=== PATIENT | female | born 2000 | race Caucasian/White ===

== ENCOUNTER 2018-07-02 15:39 | Observation (INO) ==
[2018-07-02 16:38] LABS: Basophils % 0.2 %; Eosinophils # 0.1 K/mcL (0.0-0.6); Eosinophils % 0.7 %; Hematocrit 32.2 % (35.3-44.9); Hemoglobin 10.4 g/dL (11.5-15.4); Immature Granulocytes % 0.4 % (0-4); Lymphocytes # 1.6 K/mcL (0.6-4.6); Lymphocytes % 16.1 %; Mean Corpuscular HGB Conc 32.3 g/dL (31.6-35.5); Mean Corpuscular Hemoglobin 25.1 pg (28.0-33.3); Mean Corpuscular Volume 77.6 fL (83.0-100.0); Mean Platelet Volume 10.4 fL (9.4-12.4); Monocytes # 0.5 K/mcL (0.0-1.3); Monocytes % 5.6 %; Neutrophils # 7.5 K/mcL (1.6-8.9); Platelet Count 207 K/mcL (140-400); Red Blood Count 4.15 M/mcL (3.82-4.97); Red Cell Distribution Width 13.9 % (11.5-14.5); White Blood Count 9.7 K/mcL (4.3-11.1)
[2018-07-02 16:58] LABS: Alanine Aminotransferase 7 Units/L (7-52); Aspartate Amino Transferase 9 Units/L (13-39); BUN/Creatinine Ratio 19 (6-26); Blood Urea Nitrogen 8 mg/dL (6-20); Lactate Dehydrogenase 113 Units/L (140-271); Uric Acid 4.9 mg/dL (2.3-7.6); eGFR For African Americans > 60 (> 60); eGFR For Non-African Americans > 60 (> 60)
[2018-07-02 17:58] LABS: Amphetamine Screen,Urine Negative ng/mL (Cutoff=1000); Barbiturate Screen,Urine Negative ng/mL (Cutoff=200); Benzodiazepines Screen,Urine Negative ng/mL (Cutoff=200); Cannabinoid Screen,Urine Negative ng/mL (Cutoff = 50); Cocaine Screen,Urine Negative ng/mL (Cutoff= 300); Opiate Screen,Urine Negative ng/mL (Cutoff=300); Phencyclidine Screen,Urine Negative ng/mL (Cutoff=25)
[2018-07-02 18:08] LABS: Protein/Creatinine Ratio,Urine 0.23 mg/mg (0.00-0.20)
== END 2018-07-02 18:41 | disposition home or self-care (01) ==
LOC: 1NENULAB
PROVIDERS: ADMIT Registered Nurse; ATTEND Registered Nurse

== ENCOUNTER 2018-07-04 14:26 | Inpatient (IN) ==
[2018-07-04 13:21] LABS: Basophils % 0.2 %; Eosinophils # 0.1 K/mcL (0.0-0.6); Eosinophils % 0.8 %; Hematocrit 34.3 % (35.3-44.9); Immature Granulocytes % 0.7 % (0-4); Lymphocytes # 1.3 K/mcL (0.6-4.6); Lymphocytes % 14.6 %; Mean Corpuscular HGB Conc 32.1 g/dL (31.6-35.5); Mean Corpuscular Hemoglobin 25.1 pg (28.0-33.3); Mean Corpuscular Volume 78.1 fL (83.0-100.0); Mean Platelet Volume 10.4 fL (9.4-12.4); Monocytes # 0.5 K/mcL (0.0-1.3); Monocytes % 5.4 %; Neutrophils # 7.2 K/mcL (1.6-8.9); Platelet Count 201 K/mcL (140-400); Red Blood Count 4.39 M/mcL (3.82-4.97); Red Cell Distribution Width 13.7 % (11.5-14.5); Segmented Neutrophils % 78.3 %
[2018-07-04 13:31] LABS: Alanine Aminotransferase 7 Units/L (7-52); Aspartate Amino Transferase 9 Units/L (13-39); BUN/Creatinine Ratio 13 (6-26); Blood Urea Nitrogen 5 mg/dL (6-20); Lactate Dehydrogenase 126 Units/L (140-271); Uric Acid 4.9 mg/dL (2.3-7.6); eGFR For Non-African Americans > 60 (> 60)
[2018-07-04 13:43] LABS: Amphetamine Screen,Urine Negative ng/mL (Cutoff=1000); Barbiturate Screen,Urine Negative ng/mL (Cutoff=200); Benzodiazepines Screen,Urine Negative ng/mL (Cutoff=200); Cannabinoid Screen,Urine Negative ng/mL (Cutoff = 50); Cocaine Screen,Urine Negative ng/mL (Cutoff= 300); Opiate Screen,Urine Negative ng/mL (Cutoff=300); Phencyclidine Screen,Urine Negative ng/mL (Cutoff=25)
[2018-07-04 13:44] LABS: Protein/Creatinine Ratio,Urine 0.52 mg/mg (0.00-0.20)
--- NOTE | 2018-07-04 14:14 | OB/GYN History & Physical ---
Date of Encounter: 07/04/18 Time of Encounter: 14:12 Assessment and Plan (1) 37 or more weeks gestation of Current visit: Yes Status: Acute (2) Gestational proteinuria in third trimester Current visit: Yes Status: Acute Was admitted for induction of labor versus augmentation. (3) Elevated blood pressure complicating in third trimester, antepartum Current visit: No Status: Acute History of Present Illness HPI: Ms. Trujillo is a 18 year old female Patient is a 18-year-old 1 para 0 black female enters today complaining of elevated blood pressures at home. 160/101. She was seen in the office last with low pressures 160/110. She was evaluated at that time laboratories were normal. However her protein creatinine ratio and total protein are now elevated twice with the were that she was here 2 days ago. Will admit for induction / augmentation due to gestational hypertension and proteinuria. Patient reports headaches and blurred vision. She denies contractions. Patient reports active fetus. Past Med Surg Social Fam HX - Past Medical History Medical history: no medical history Additional medical history: pre-diabetes Psychiatric history: anxiety, depression - Past Surgical History Surgical History: appendectomy Additional surgical history: right wrist ligament repair, wisdom teeth extraction - Social History Smoking Status: Never smoker Smokeless Tobacco Status: No Alcohol use: none Drug use: none - Family History Mother Living Status: Hx Family Cardiac Disorders: Yes (HTN) Hx Family Respiratory Disorders: No Hx Family Cancer: Yes (lung) Hx Family GI Disorders: No Hx Family Endocrine Disorder: Yes (DM type 2) Hx Family Neuromuscular Disorders: No Hx Family Neurologic Disorders: No Hx Family HEENT Disorders: No Hx Family Autoimmune Disorders: No Obstetrical History - Pregnancies : 1 Para: 0 Medications and Allergies Vxp204/FA/Omega3/Dha/Fish Oil [ Gummies] 1 each PO DAILY 05/11/18 [ History] 3 Allergy/AdvReac Type Severity Reaction Status Date / Time No Known Allergies Allergy Verified 05/11/18 06:03 Review of System OB All systems PM: reviewed and no additional remarkable complaints except as stated - Genitourinary Genitourinary: amenorrhea - Menstruation Menstruation: amenorrhea - Neurological Nerological: as per HPI, headache(s), other visual disturbances Exam - Constitutional Constitutional: morbidly obese - HEENT HEENT: Normocephaly - Neck Neck exam: full ROM - Lungs Respiratory exam: CTAB - Cardiovascular Cardiovascular exam: RRR - Abdomen Abdomen: Present: gravid, non tender - Extremities Extremities exam: full ROM Deep Tendon Reflex Grade: 2+ Normal - Cervix Dilation: 2 Effacement: 60 Station: -2 - Uterus Uterus exam: Present: enlarged Results Result Diagrams: 07/04/18 12:38 07/04/18 12:38 Abnormal lab results Hgb 11.0 g/dL (11.5-15.4) L 07/04/18 12:38 Hct 34.3 % (35.3-44.9) L 07/04/18 12:38 MCV 78.1 fL (83.0-100.0) L 07/04/18 12:38 MCH 25.1 pg (28.0-33.3) L 07/04/18 12:38 BUN 5 mg/dL (6-20) L 07/04/18 12:38 Creatinine 0.39 mg/dL (0.60-1.20) L 07/04/18 12:38 AST 9 Units/L (13-39) L 07/04/18 12:38 Lactate Dehydrogenase 126 Units/L (140-271) L 07/04/18 12:38 Protein/Creatinin Ratio 0.52 mg/mg (0.00-0.20) H 07/04/18 12:55 Urine Total Protein 90 mg/dL (1-14) H 07/04/18 12:55 All other labs normal. - VTE Reasons for not Prescribing Prophylaxis: Treatment not Indicated - Low risk for VTE - Attending Attestation clifford fairchild md facog
[~2018-07-04 14:26] MED LIST: *HR* Nalbuphine 10 MG/ML AMPUL IVP PRN; Famotidine 20 MG/2 ML VIAL IVP PRN; Naloxone 0.4 MG/ML INJ IVP PRN; Ondansetron 4 MG/2 ML VIAL IVP PRN
[2018-07-04] MEDS ORDERED: Oxytocin 20 units/ LR 1000 mL 20 UNIT/1,000 ML BAG IVC SCH (16:30)
[2018-07-04] MEDS: 0.9 % Sodium Chloride 1,000 ML IVC SCH (17:13)
[2018-07-04] MEDS ORDERED: Epidural Premix (fent/bupiv) 110 ML EP SCH (18:15)
[2018-07-04] MEDS ORDERED: EPHEDrine 50 MG/ML VIAL IVP PRN (18:15)
[2018-07-04] MEDS ORDERED: Bupivacaine-MPF 0.25% 10 ML VIAL EP ONE (18:15)
[2018-07-04] MEDS ORDERED: Ondansetron 4 MG/2 ML VIAL IVP PRN (18:15)
[2018-07-04] MEDS ORDERED: *HR* FentaNYL (PF) 100 MCG/2 ML VIAL EP ONE (18:15)
[2018-07-04] MEDS ORDERED: Naloxone 0.4 MG/ML INJ IVP PRN (18:15)
[2018-07-04] MEDS ORDERED: *HR* Ropivacaine/PF 0.2% 20 ML VIAL EP ONE (18:15)
--- NOTE | 2018-07-04 18:19 | Anesthesia Evaluation PreOp ---
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: Denies Any Significant HX Other Medical History: Denies Any Significant HX Anesthesia History: No Prior Anesthetic Complications, Past Anesthesia ( Appendectomy, [place] teeth extraction, right wrist surgery) : Yes Alcohol Use: none Drug use: none Medications and Allergies [id number]/FA/Omega3/Dha/Fish Oil [ Gummies] 1 each PO DAILY 05/11/18 [ History] 3 Allergy/AdvReac Type Severity Reaction Status Date / Time No Known Allergies Allergy Verified 05/11/18 06:03 - Meds/Allergy Pre-op Review Medications Reviewed: Yes Allergies Reviewed: Yes Beta Blockers on Current Med List: No Anesthesia Results - Labs 07/04/18 12:38 07/04/18 12:38 Anesthesia Exam BP 163/94 P 88 R 16 T 97.6 Height: 5'0" Weight: 114.7kg NPO (# of Hours): 4 Pain Scale: 4 Pain Scale Used: Numeric (1 - 10) - HEENT Pupil (Motor): Pupils equal Mallampati: II Teeth: Normal Oral Opening: Greater than 3 - 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
[2018-07-04] MEDS ORDERED: *HR* FentaNYL (PF) 100 MCG/2 ML VIAL ONE (19:54)
[2018-07-04] MEDS ORDERED: Lidocaine -MPF 2% 5 ML VIAL ONE (19:55)
--- NOTE | 2018-07-04 21:45 | OB Labor Progress Note ---
Date of Encounter: 07/04/18 Time of Encounter: 21:43 Labor Progress Note - Subjective Subjective: Patient resting comfortably with Nubain - Cervix Cervix: 1/80/-2 - Heart Tones Heart Tones: 130/moderate/+accels/-decels - [place]: 2-3 - Interventions Interventions: Cervical Disla placed - Plan Plan: Continue Pitocin per policy Frequent repositioning Nubain and epidural as desired Anticipate
--- NOTE | 2018-07-04 22:37 | Anesthesia Procedures ---
Date of Encounter: 07/04/18 Time of Encounter: 22:12 Procedures: Anesthesia - Epidural/Spinal Patient ID/Chart reviewed: Yes Patient examined: Yes OB Eval: Gestational age: 37 OB Eval: : 1 OB Eval: Hx Para: 0 OB Eval: Dilated at (cm): 1 OB Eval: Contractions: Non-stressed pattern Consent Obtained: Yes Supplemental Oxygen: None/Room Air Site Prep: Aseptic Technique, Sterile prep and drape, Povidone-Iodine 1% Patient position: upright Local Anesthetic: Lidocaine 1% Amount of Local Anesthetic used: 3 Touhy Needle Gauge: 18 Touhy Needle Depth (cm): 7 Catheter Depth at Skin (cm): 16 Test Dose (1.5% Lido + Epi): Volume given (mls): 3 Test Dose Result: Negative Loading Dose: Fentanyl (mcg): 100 Loading Dose Administered: Thru Catheter Infusion Med: 0.125% Bupivacaine w/ 2 mcg/ml Fentanyl Infusion Rate (mls/hr): [address]: Tegaderm, Tape Interspace Used: L3-L4 Loss of Resistance (FRANK): Yes Blood: No CSF: No Paresthesia: No Procedure: LILY placed 1st pass in upright position without any immediate noted complications. VSS and FHT stable throughout. Vitals + FHT's: 2212 BP 144/102 P 89 R 18 2234 BP 138/78 P 106 R 16 FHT 135
--- NOTE | 2018-07-05 02:28 | OB Labor Progress Note ---
Date of Encounter: 07/05/18 Time of Encounter: 02:26 Labor Progress Note - Subjective Subjective: Comfortable with epidural - Cervix Cervix: 5/75/-2 - Heart Tones Heart Tones: 140/minimal/-accels/late, variables - Jemison Jemison: q2 - Interventions Interventions: AROM for small amount of clear fluid - Plan Plan: Continue pitocin per policy Frequent repositioning anticipate
--- NOTE | 2018-07-05 03:21 | OB Labor Progress Note ---
Date of Encounter: 07/05/18 Time of Encounter: 03:19 Labor Progress Note - Cervix Cervix: /-1 - [place]: IUPC placed - Interventions Interventions: Fluid bolus
[2018-07-05] MEDS: 0.9 % Sodium Chloride 1,000 ML IVC SCH (04:29)
--- NOTE | 2018-07-05 06:34 | Anesthesia Progress Note ---
Date of Encounter: 07/05/18 Time of Encounter: 06:25 Anesthesia Note - Note Note: 07/05/18 06:32 Called to bedside for pain control. Pt complaining of "back pain" during contractions. Bolus naropin 0.2% 8ml administered via epidural catheter. VSS and FHT stable throughout. 07/05/18 06:34
[2018-07-05] MEDS ORDERED: Ringers Solution, Lactated 1,000 ML ONE (06:57)
--- NOTE | 2018-07-05 10:39 | OB/GYN Procedure Note ---
Delivery - Delivery Date: 07/05/18 Provider: Edy Charles Intrapartum events: none Delivery induction: oxytocin, randle Delivery augmentation: rupture of membranes Delivery monitor: external FHT, external uterine, internal uterine Anesthesia: local, epidural Quantitated Blood Loss: 100 - (s) Infant A Delivery Date: 07/05/18 Infant Delivery Time: 10:12 Presentation: vertex Position: SAMIR Route of delivery: Gender: Female Viability: Viable Pounds: 6 Ounces: 4 Weight Gram: 2.845 kg at 1 minute: 1 at 5 mins: 6 at 10 mins: 7 Shoulder Dystocia: not encountered Specimens collected: cord blood Placenta: spontaneous Cord: nuchal cord, 3 umbilical vessels, nuchal cut - Repair Episiotomy: none Laceration Description: Perineal - 2nd Degree - Complications Delivery complications: none Delivery comments: Patient is a 18-year-old 1 para 0 at 37 and one sevenths weeks who presented to labor and delivery with elevated blood pressures. She been seen on labor and delivery last week with similar complaints the lab work was all normal she was discharged home patient continued to have elevated blood pressures at home upon arrival to labor and delivery there were elevated and her protein creatinine ratio was 0.5. Because of the abnormality recommended we just go ahead and keep her and induce her. Patient to get a Randle catheter along with Pitocin patient progressed appropriately did receive an epidural. She became complete and allowed the patient to labor down she pushed for approximately 1 hour. Right before delivery was noted patient was having some decelerations down into the 90s but did return to baseline patient was able to deliver the 's head in left occiput anterior presentation at 1012. There was a tight nuchal cord 1 that was clamped and cut the was fully delivered and immediately handed off to waiting pediatric team. Cord gases were obtained at this time cord blood was not necessary. Apgars were 1 at 1 minute, 6 at 5 min, 7 at 10 minutes. Placenta then delivered spontaneously with a three-vessel cord, substance abuse nurse at [place], anesthesia epidural local, estimated blood loss was 100 mL. Patient had a second-degree perineal laceration repaired with 3-0 Vicryl in usual fashion cervix and vagina was visualized intact. Patient tolerated the delivery well she will be observed for 2 hours before being taken floor. - Disposition Mom disposition: stable in LDR disposition: taken to nursery
[2018-07-05] MEDS ORDERED: Oxytocin 20 units/ LR 1000 mL 20 UNIT/1,000 ML BAG IVC SCH (13:02)
[2018-07-05] MEDS ORDERED: Lanolin 7 G OINT...G. TP PRN (13:02)
[2018-07-05] MEDS ORDERED: Acetaminophen 325 MG TABLET PO PRN (13:02)
[2018-07-05] MEDS ORDERED: Benzocaine/Menthol 56 GM AEROSOL SPRAY TP PRN (13:02)
[2018-07-05] MEDS: Ibuprofen 600 MG TABLET PO PRN (19:52)
[2018-07-06] MEDS: Ibuprofen 600 MG TABLET PO PRN ×2 (02:53→17:58)
[2018-07-06 05:57] LABS: Basophils % 0.2 %; Eosinophils # 0.1 K/mcL (0.0-0.6); Eosinophils % 1.1 %; Hematocrit 29.7 % (35.3-44.9); Immature Granulocytes % 0.7 % (0-4); Lymphocytes # 2.2 K/mcL (0.6-4.6); Lymphocytes % 18.1 %; Mean Corpuscular HGB Conc 31.3 g/dL (31.6-35.5); Mean Corpuscular Volume 79.8 fL (83.0-100.0); Mean Platelet Volume 10.5 fL (9.4-12.4); Monocytes # 0.8 K/mcL (0.0-1.3); Monocytes % 6.7 %; Neutrophils # 8.9 K/mcL (1.6-8.9); Platelet Count 177 K/mcL (140-400); Red Blood Count 3.72 M/mcL (3.82-4.97); Red Cell Distribution Width 14.1 % (11.5-14.5); Segmented Neutrophils % 73.2 %
[2018-07-06 06:01] LABS: Hemoglobin 9.3 g/dL (11.5-15.4)
--- NOTE | 2018-07-06 08:39 | Discharge Summary ---
Date of Encounter: 07/06/18 Time of Encounter: 08:36 - Discharge Diagnosis (1) Vaginal delivery Priority: Primary Status: Acute Comments: Feeling well Pain well controlled with by mouth pain meds Tolerating regular diet Voiding independently lochia light Passing flatus, no BM yet Vital signs stable Ambulating independently Discharge home today (2) anemia Priority: Secondary Status: Acute Comments: Continue iron supplementation daily (3) Breast feeding status of mother Priority: Secondary Status: Acute Comments: Community resources provided - Discharge Medications Prescriptions: Ibuprofen [Motrin] 600 mg PO Q6HR PRN #30 tablet PRN Reason: Cramping Docusate [Colace] 100 mg PO BID #60 capsule Ferrous Sulfate 325 mg PO 0800 #30 tablet Home Medications: Rlx860/FA/Omega3/Dha/Fish Oil [ Gummies] 1 each PO DAILY 05/11/18 [ History] Acetaminophen [Tylenol] 650 mg PO Q6HR PRN tablet 07/06/18 [Rx] Benzocaine/Menthol [place] [Dermoplast [place]] 1 appl TP QID PRN aerosol 07/06/18 [Rx] Docusate [Colace] 100 mg PO BID #60 capsule 07/06/18 [Rx] Ferrous Sulfate 325 mg PO 0800 #30 tablet 07/06/18 [Rx] Ibuprofen [Motrin] 600 mg PO Q6HR PRN #30 tablet 07/06/18 [Rx] Lanolin [Lansinoh] 1 appl TP Q4HR PRN oint...g. 07/06/18 [Rx] Allergies/Adverse Reactions: 3 Allergy/AdvReac Type Severity Reaction Status Date / Time No Known Allergies Allergy Verified 05/11/18 06:03 Data Procedures and tests throughout hospitalization: Laboratory Tests 07/04/18 07/04/18 07/04/18 12:38 12:38 12:55 WBC 9.1 RBC 4.39 Hgb 11.0 L Hct 34.3 L MCV 78.1 L MCH 25.1 L MCHC 32.1 RDW 13.7 Plt Count 201 MPV 10.4 Immature Gran % 0.7 Seg Neutrophils % 78.3 Lymphocytes % 14.6 Monocytes % 5.4 Eosinophils % 0.8 Basophils % 0.2 Neutrophils # 7.2 Lymphocytes # 1.3 Monocytes # 0.5 Eosinophils # 0.1 Basophils # 0.0 BUN 5 L Creatinine 0.39 L Est GFR ( Amer) > 60 Est GFR (Non-Af Amer) > 60 BUN/Creatinine Ratio 13 Uric Acid 4.9 AST 9 L ALT 7 Lactate Dehydrogenase 126 L Urine Creatinine Protein/Creatinin Ratio Urine Total Protein Urine Opiates Screen Negative Ur Barbiturates Screen Negative Ur Phencyclidine Scrn Negative Ur Amphetamines Screen Negative U Benzodiazepines Scrn Negative Urine Cocaine Screen Negative U Marijuana (THC) Screen Negative Ur Drug Screen Interp See Below 07/04/18 07/06/18 12:55 05:26 WBC 12.1 H RBC 3.72 L Hgb 9.3 L D Hct 29.7 L MCV 79.8 L MCH 25.0 L MCHC 31.3 L RDW 14.1 Plt Count 177 MPV 10.5 Immature Gran % 0.7 Seg Neutrophils % 73.2 Lymphocytes % 18.1 Monocytes % 6.7 Eosinophils % 1.1 Basophils % 0.2 Neutrophils # 8.9 Lymphocytes # 2.2 Monocytes # 0.8 Eosinophils # 0.1 Basophils # 0.0 BUN Creatinine Est GFR ( Amer) Est GFR (Non-Af Amer) BUN/Creatinine Ratio Uric Acid AST ALT Lactate Dehydrogenase Urine Creatinine 174 Protein/Creatinin Ratio 0.52 H Urine Total Protein 90 H Urine Opiates Screen Ur Barbiturates Screen Ur Phencyclidine Scrn Ur Amphetamines Screen U Benzodiazepines Scrn Urine Cocaine Screen U Marijuana (THC) Screen Ur Drug Screen Interp Labs on day of discharge: Labs from last 24 hours 07/06/18 05:26 WBC 12.1 H RBC 3.72 L Hgb 9.3 L D Hct 29.7 L MCV 79.8 L MCH 25.0 L MCHC 31.3 L RDW 14.1 Plt Count 177 MPV 10.5 Immature Gran % 0.7 Seg Neutrophils % 73.2 Lymphocytes % 18.1 Monocytes % 6.7 Eosinophils % 1.1 Basophils % 0.2 Neutrophils # 8.9 Lymphocytes # 2.2 Monocytes # 0.8 Eosinophils # 0.1 Basophils # 0.0 Date of admission: 07/04/18 14:27 Consults: 07/05/18 13:02 Consult to Director Medical [CONS] Routine Comment: Vaginal delivery, consult needed Discharging clinician: Shelbi Spivey Anticipated date of discharge: 07/06/18 - Patient Status Disposition: Home, Self-Care Condition: Good Functional capacity at discharge: independent ambulation Overall status at discharge: patient is progressing back to baseline - Discharge Instructions Follow Up With: Gucci Pemberton MD [Partnered Physician] - - Diet and Activity Activity: increase activity as tolerated Diet: regular diet Hospital Course Reason for admission: induction of labor, IUP at term Delivery: Episiotomy: none Laceration: 2nd degree Other procedures: none complications: none Discharge diagnosis: IUP at term delivered [place] baby: female Hospital course: Patient was admitted for induction of labor secondary to elevated blood pressures. She progressed through normal course of labor to complete and delivered a viable female . course has been uncomplicated. Hemoglobin remains low at 9.3. Iron supplementation will be continued through visit. Patient will be discharged to home today presuming is discharged as well. If not, patient will remain as a guest. Time Attestation: Total time spent providing and/or coordinating discharge services: Time Spent: Less than 30 minutes Exam - Constitutional Vitals: Temp Pulse Resp BP Pulse Ox 97.8 F 80 16 134/88 99 07/06/18 03:07 07/06/18 03:07 07/06/18 03:07 07/06/18 03:07 07/06/18 03:07 General appearance IM: A&O X 3 - Respiratory Respiratory exam: Present: CTAB - Cardiovascular Cardiovascular exam IM: Present: RRR, +S1, +S2 - GI/Abdominal GI/Abdominal exam IM: normal bowel sounds, no peritoneal signs - Rectal Rectal exam: deferred - Uterine Tone: Firm Uterus Position: 2 Fingers Below Umbilicus, Midline - Extremities Exam Extremities exam IM: Present: normal capillary refill, normal inspection, radial pulses palpable and symmetrical - Neurological Exam Neurological exam: alert, CN II-XII intact, normal gait, oriented X3, reflexes normal, no focal deficits, strengths equal and symetr throughout - Psychiatric Additional comments: Patient denies history of anxiety and depression. Signs and symptoms of depression discussed with patient and she verbalizes understanding of when to seek help. - Skin Additional comments: Breasts: Soft, nontender; nipples intact without erythema
[2018-07-06] MEDS: Prenatal Vit/FA 1 EACH TABLET PO SCH (09:36)
[2018-07-07 08:35] VITALS: BP 142/90
[2018-07-07] MEDS: Ibuprofen 600 MG TABLET PO PRN (09:02)
[2018-07-07] MEDS: Prenatal Vit/FA 1 EACH TABLET PO SCH (09:02)
--- NOTE | 2018-07-07 09:31 | Discharge Summary ---
Date of Encounter: 07/07/18 Time of Encounter: 09:29 - Discharge Diagnosis (1) Breast feeding status of mother Priority: Secondary Status: Acute Comments: support as needed. Patient states she has a breast pump at home. (2) anemia Priority: Secondary Status: Acute Comments: Continue Iron . Rx sent to patient pharmacy. (3) Vaginal delivery Priority: Primary Status: Acute Comments: Continue routine care Discharge home today. Motrin and lansinoh Rx sent to patient pharmacy. - Discharge Medications Prescriptions: Ibuprofen [Motrin] 600 mg PO Q6HR PRN #30 tablet PRN Reason: Cramping Docusate [Colace] 100 mg PO BID #60 capsule Ferrous Sulfate 325 mg PO 0800 #30 tablet Home Medications: [id number]/FA/Omega3/Dha/Fish Oil [ Gummies] 1 each PO DAILY 05/11/18 [ History] Acetaminophen [Tylenol] 650 mg PO Q6HR PRN tablet 07/06/18 [Rx] Benzocaine/Menthol [place] [Dermoplast [place]] 1 appl TP QID PRN aerosol 07/06/18 [Rx] Docusate [Colace] 100 mg PO BID #60 capsule 07/06/18 [Rx] Ferrous Sulfate 325 mg PO 0800 #30 tablet 07/06/18 [Rx] Ibuprofen [Motrin] 600 mg PO Q6HR PRN #30 tablet 07/06/18 [Rx] Lanolin [Lansinoh] 1 appl TP Q4HR PRN oint...g. 07/06/18 [Rx] Allergies/Adverse Reactions: 3 Allergy/AdvReac Type Severity Reaction Status Date / Time No Known Allergies Allergy Verified 05/11/18 06:03 Data Procedures and tests throughout hospitalization: Laboratory Tests 07/04/18 07/04/18 07/04/18 12:38 12:38 12:55 WBC 9.1 RBC 4.39 Hgb 11.0 L Hct 34.3 L MCV 78.1 L MCH 25.1 L MCHC 32.1 RDW 13.7 Plt Count 201 MPV 10.4 Immature Gran % 0.7 Seg Neutrophils % 78.3 Lymphocytes % 14.6 Monocytes % 5.4 Eosinophils % 0.8 Basophils % 0.2 Neutrophils # 7.2 Lymphocytes # 1.3 Monocytes # 0.5 Eosinophils # 0.1 Basophils # 0.0 BUN 5 L Creatinine 0.39 L Est GFR ( Amer) > 60 Est GFR (Non-Af Amer) > 60 BUN/Creatinine Ratio 13 Uric Acid 4.9 AST 9 L ALT 7 Lactate Dehydrogenase 126 L Urine Creatinine Protein/Creatinin Ratio Urine Total Protein Urine Opiates Screen Negative Ur Barbiturates Screen Negative Ur Phencyclidine Scrn Negative Ur Amphetamines Screen Negative U Benzodiazepines Scrn Negative Urine Cocaine Screen Negative U Marijuana (THC) Screen Negative Ur Drug Screen Interp See Below 07/04/18 07/06/18 12:55 05:26 WBC 12.1 H RBC 3.72 L Hgb 9.3 L D Hct 29.7 L MCV 79.8 L MCH 25.0 L MCHC 31.3 L RDW 14.1 Plt Count 177 MPV 10.5 Immature Gran % 0.7 Seg Neutrophils % 73.2 Lymphocytes % 18.1 Monocytes % 6.7 Eosinophils % 1.1 Basophils % 0.2 Neutrophils # 8.9 Lymphocytes # 2.2 Monocytes # 0.8 Eosinophils # 0.1 Basophils # 0.0 BUN Creatinine Est GFR ( Amer) Est GFR (Non-Af Amer) BUN/Creatinine Ratio Uric Acid AST ALT Lactate Dehydrogenase Urine Creatinine 174 Protein/Creatinin Ratio 0.52 H Urine Total Protein 90 H Urine Opiates Screen Ur Barbiturates Screen Ur Phencyclidine Scrn Ur Amphetamines Screen U Benzodiazepines Scrn Urine Cocaine Screen U Marijuana (THC) Screen Ur Drug Screen Interp Date of admission: 07/04/18 14:27 Primary care physician: PCP NONE Consults: 07/05/18 13:02 Consult to Technical Writer And Editor [CONS] Routine Comment: Vaginal delivery, consult needed Discharging clinician: Keyla Melendez Anticipated date of discharge: 07/07/18 - Patient Status Disposition: Home, Self-Care Condition: Good Functional capacity at discharge: independent ambulation Overall status at discharge: patient is progressing back to baseline - Discharge Instructions Follow Up With: Gucci Pemberton MD [Partnered Physician] - - Diet and Activity Activity: resume usual activities as tolerated Diet: advance to your usual diet Hospital Course Reason for admission: induction of labor, pre-eclampsia Delivery: Episiotomy: none Laceration: 2nd degree Other procedures: none complications: none Discharge diagnosis: IUP at term delivered [place] baby: female Time Attestation: Total time spent providing and/or coordinating discharge services: Time Spent: Less than 30 minutes Exam - Constitutional Vitals: Temp Pulse Resp BP Pulse Ox 98.1 F 92 16 142/90 99 07/07/18 08:34 07/07/18 08:34 07/07/18 08:51 07/07/18 08:34 07/07/18 08:34 General appearance IM: A&O X 3 - Respiratory Respiratory exam: Present: CTAB - Cardiovascular Cardiovascular exam IM: Present: +S1, +S2 - GI/Abdominal GI/Abdominal exam IM: normal bowel sounds, soft - Uterine Tone: Firm Uterus Position: At Umbilicus - Extremities Exam Extremities exam IM: Present: normal capillary refill, normal inspection - Neurological Exam Neurological exam: normal gait, oriented X3
== END 2018-07-07 10:24 | disposition home or self-care (01) | DRG 560 ==
LOC: 1NENULAB → 1NENUOBS 07-05 12:49
PROVIDERS: ADMIT Obstetrics & Gynecology; ATTEND Obstetrics & Gynecology

== ENCOUNTER → 2019-02-27 21:16 | Observation (INO) ==
[2019-02-27 19:39] LABS: Basophils % 0.1 %; Eosinophils % 0.1 %; Hematocrit 32.8 % (35.3-44.9); Hemoglobin 10.6 g/dL (11.5-15.4); Immature Granulocytes % 0.1 % (0-4); Lymphocytes # 0.7 K/mcL (0.6-4.6); Lymphocytes % 10.5 %; Mean Corpuscular HGB Conc 32.3 g/dL (31.6-35.5); Mean Corpuscular Hemoglobin 26.3 pg (28.0-33.3); Mean Corpuscular Volume 81.4 fL (83.0-100.0); Monocytes # 0.5 K/mcL (0.0-1.3); Monocytes % 6.8 %; Neutrophils # 5.8 K/mcL (1.6-8.9); Platelet Count 205 K/mcL (140-400); Red Blood Count 4.03 M/mcL (3.82-4.97); Red Cell Distribution Width 13.3 % (11.5-14.5); Segmented Neutrophils % 82.4 %
[2019-02-27 19:53] LABS: Amphetamine Screen,Urine Negative ng/mL (Cutoff=1000); Barbiturate Screen,Urine Positive ng/mL (Cutoff=200); Benzodiazepines Screen,Urine Negative ng/mL (Cutoff=200); Cannabinoid Screen,Urine Negative ng/mL (Cutoff = 50); Cocaine Screen,Urine Negative ng/mL (Cutoff= 300); Creatinine,Urine 204 mg/dL; Opiate Screen,Urine Negative ng/mL (Cutoff=300); Phencyclidine Screen,Urine Negative ng/mL (Cutoff=25); Protein/Creatinine Ratio,Urine 0.21 mg/mg (0.00-0.20)
[2019-02-27 20:02] LABS: Alanine Aminotransferase 7 Units/L (7-52); Aspartate Amino Transferase 8 Units/L (13-39); BUN/Creatinine Ratio 14 (6-26); Blood Urea Nitrogen 5 mg/dL (6-20); Lactate Dehydrogenase 95 Units/L (140-271); Uric Acid 3.5 mg/dL (2.3-7.6); eGFR For Non-African Americans > 60 (> 60)
--- NOTE | 2019-02-27 21:07 | OB/GYN Progress Note ---
Date of Encounter: 02/27/19 Time of Encounter: 21:03 - Assessment and Plan (1) 25 weeks gestation of Current Visit: Yes Status: Acute FHT reassuring for GA (2) Nausea and vomiting during Current Visit: Yes Status: Acute Pt states she has nausea medication at home but she did not take any. She is feeling much better since getting zofran. She reports elevated BP at home but all blood pressures in triage are normal. PIH labs all normal. Discharge home with precautions. Subjective - Subjective Interval history: 18 year-old presenting at 25w4d with c/o nausea and vomiting all day as well as elevated blood pressure on home monitor. Pt reports nausea and vomiting started this am and she has vomited about 4-5 times today. She took her blood pressure at home and it was 171/91. She did have a history of elevated blood pressure that started at term with her last . No HTN outside of . She has a history of migraines for which she takes fioricet. She denies cramping, leaking, or bleeding. Good FM. Antepartum ROS: movement normal, no loss of fluid, no vaginal bleeding, no contractions Objective - Vital Signs Vital Signs: Intake and Output 02/27/19 02/27/19 02/27/19 07:59 15:59 23:59 Other: Weight 230.3 kg Patient Weight 02/27/19 23:59 Weight 230.3 kg - Exam FHR: category 1 FHR comments: 150 BPM, reassuring for GA Auscultation: bilateral: normal Abdomen: Present: soft, gravid Uterus: Present: normal Comments: reflexes 2+, no clonus - Labs Labs: Abnormal lab results Hgb 10.6 g/dL (11.5-15.4) L 02/27/19 19:20 Hct 32.8 % (35.3-44.9) L 02/27/19 19:20 MCV 81.4 fL (83.0-100.0) L 02/27/19 19:20 MCH 26.3 pg (28.0-33.3) L 02/27/19 19:20 BUN 5 mg/dL (6-20) L 02/27/19 19:20 0.35 mg/dL (0.60-1.20) L 02/27/19 19:20 AST 8 Units/L (13-39) L 02/27/19 19:20 95 Units/L (140-271) L 02/27/19 19:20 Protein/Creatinin Ratio 0.21 mg/mg (0.00-0.20) H 02/27/19 19:20 43 mg/dL (1-14) H 02/27/19 19:20 Ur Barbiturates Screen Positive ng/mL (Xjeibu=138) H 02/27/19 19:20
[~2019-02-27 21:16] MED LIST changes: -*HR* Nalbuphine 10 MG/ML AMPUL IVP PRN; -Famotidine 20 MG/2 ML VIAL IVP PRN; -Naloxone 0.4 MG/ML INJ IVP PRN; +Ondansetron 4 MG/2 ML VIAL IVP ONE; -Ondansetron 4 MG/2 ML VIAL IVP PRN; +Ringers Solution, Lactated 1,000 ML IVC ONE; +Ringers Solution, Lactated 1,000 ML ONE
== END | disposition home or self-care (01) ==
LOC: 1NENULAB
PROVIDERS: ADMIT Registered Nurse; ATTEND Registered Nurse

== ENCOUNTER 2019-05-11 18:47 | Observation (INO) ==
[2019-05-11 20:16] LABS: Bilirubin,Urine Negative (Negative); Blood,Urine Negative (Negative); Clarity,Urine Cloudy (Clear); Color,Urine Yellow (Yellow); Glucose,Urine (UA) Normal (Normal); Ketones,Urine Negative (Negative); Leukocyte Esterase,Urine Large (Negative); Nitrite,Urine Negative (Negative); Protein,Urine Trace mg/dL (Neg-Trace); Specific Gravity,Urine 1.025 (1.010-1.025); Urobilinogen,Urine Normal (Normal)
[2019-05-11 20:18] LABS: Bacteria,Urine Few per hpf (None-Few); Hyaline Casts,Urine Few per lpf (None-Few); RBC,Urine 15-30 per hpf (0-3); Squamous Epithelial Cell,Urine Many per lpf (None-Few); WBC,Urine 30-50 per hpf (0-3)
[2019-05-11 20:26] LABS: Amphetamine Screen,Urine Negative ng/mL (Cutoff=1000); Barbiturate Screen,Urine Negative ng/mL (Cutoff=200); Benzodiazepines Screen,Urine Negative ng/mL (Cutoff=200); Cannabinoid Screen,Urine Negative ng/mL (Cutoff = 50); Cocaine Screen,Urine Negative ng/mL (Cutoff= 300); Opiate Screen,Urine Negative ng/mL (Cutoff=300); Phencyclidine Screen,Urine Negative ng/mL (Cutoff=25)
== END 2019-05-11 21:49 | disposition home or self-care (01) ==
LOC: 1NENULAB
PROVIDERS: ADMIT Advanced Practice Midwife; ATTEND Advanced Practice Midwife

== ENCOUNTER 2019-06-02 09:32 | Inpatient (IN) ==
[2019-06-02] MEDS ORDERED: Naloxone 0.4 MG/ML INJ IVP PRN (11:56)
[2019-06-02] MEDS ORDERED: Famotidine 20 MG/2 ML VIAL IVP PRN (11:56)
[2019-06-02] MEDS ORDERED: Lidocaine 1% 20 ML MDV INFILT PRN (11:56)
[2019-06-02] MEDS ORDERED: Metoclopramide 10 MG/2 ML VIAL IVP PRN ×2 (11:56→23:44)
[2019-06-02] MEDS ORDERED: Ondansetron 4 MG/2 ML VIAL IVP PRN ×2 (11:56→23:44)
[2019-06-02] MEDS ORDERED: *HR* Nalbuphine 10 MG/ML AMPUL IVP PRN (11:56)
[2019-06-02] MEDS ORDERED: miSOPROStol 25 MCG TABLET PO PRN (11:56)
[2019-06-02] MEDS ORDERED: Ringers Solution, Lactated 1,000 ML IVC SCH (12:00)
[2019-06-02 12:22] LABS: Amphetamine Screen,Urine Negative ng/mL (Cutoff=1000); Barbiturate Screen,Urine Negative ng/mL (Cutoff=200); Benzodiazepines Screen,Urine Negative ng/mL (Cutoff=200); Cannabinoid Screen,Urine Negative ng/mL (Cutoff = 50); Cocaine Screen,Urine Negative ng/mL (Cutoff= 300); Opiate Screen,Urine Negative ng/mL (Cutoff=300); Phencyclidine Screen,Urine Negative ng/mL (Cutoff=25)
[2019-06-02 13:53] LABS: Basophils % 0.2 %; Eosinophils # 0.1 K/mcL (0.0-0.6); Eosinophils % 0.7 %; Hematocrit 35.2 % (35.3-44.9); Immature Granulocytes % 0.6 % (0-4); Lymphocytes # 1.7 K/mcL (0.6-4.6); Lymphocytes % 18.4 %; Mean Corpuscular HGB Conc 31.3 g/dL (31.6-35.5); Mean Corpuscular Hemoglobin 25.3 pg (28.0-33.3); Mean Corpuscular Volume 80.9 fL (83.0-100.0); Mean Platelet Volume 11.2 fL (9.4-12.4); Monocytes # 0.6 K/mcL (0.0-1.3); Monocytes % 6.3 %; Neutrophils # 6.9 K/mcL (1.6-8.9); Platelet Count 216 K/mcL (140-400); Red Blood Count 4.35 M/mcL (3.82-4.97); Red Cell Distribution Width 14.5 % (11.5-14.5); Segmented Neutrophils % 73.8 %; White Blood Count 9.4 K/mcL (4.3-11.1)
--- NOTE | 2019-06-02 14:05 | OB/GYN History & Physical ---
Date of Encounter: 06/02/19 Time of Encounter: 13:54 Assessment and Plan (1) 39 weeks gestation of Current visit: Yes Status: Acute Patient has received care with Dr. Pemberton here for induction of labor (2) 39 weeks gestation of Current visit: Yes Status: Acute (3) Short interval between pregnancies affecting in third trimester, antepartum Current visit: Yes Status: Acute growth has been reassuring (4) Obesity affecting in third trimester Current visit: Yes Status: Acute The patient has had reassuring lab work and growth ultrasounds. (5) Short interval between pregnancies affecting in third trimester, antepartum Current visit: Yes Status: Acute History of Present Illness Chief complaint: IOL @39 wks HPI: Ms. Trujillo is a 19 year old female with an EDC of 06/08/19 who has received care with Dr. Pemberton. She has been scheduled for an induction of labor at 39 weeks and 1 day. She has a this been complicated by short interval with delivery of her last child on 07/05/18. She had Nexplanon placed and then had a removed in September. She was not placed on another control prior to conceiving. She also has a BMI over 40. She has had normal glucose testing. Her blood type is a positive, she is rubella equivocal, varicella immune, GBS negative. She has had normal PIH baseline labs. Her Wan score is 11. She reported light spotting after her exam yesterday but no other significant changes. Past Med Surg Social Fam HX - Past Medical History Source: patient, old records reviewed Medical history: migraine Additional medical history: pre-diabetes Psychiatric history: anxiety, depression - Past Surgical History Surgical History: appendectomy Additional surgical history: right wrist ligament repair, wisdom teeth extraction - Social History Smoking Status: Never smoker Smokeless Tobacco Status: No Alcohol use: none Drug use: none Current living situation: Home - Independent - Family History Mother Living Status: Hx Family Cardiac Disorders: Yes (HTN, Tachycardia) Hx Family Respiratory Disorders: No Hx Family Cancer: Yes (Lung Cancer) Hx Family GI Disorders: No Hx Family Endocrine Disorder: Yes (DM type 2) Hx Family Neuromuscular Disorders: No Hx Family Neurologic Disorders: No Hx Family HEENT Disorders: No Hx Family Autoimmune Disorders: No Obstetrical History - Pregnancies : 2 Term: 1 Livin Medications and Allergies [id number]/FA/Omega3/Dha/Fish Oil [ Gummies] 1 each PO DAILY 05/11/18 [History] Ferrous Sulfate 1 tab PO BID 05/11/19 [History] Allergy/AdvReac Type Severity Reaction Status Date / Time No Known Allergies Allergy Verified 05/19/19 19:35 Review of System OB All systems PM: reviewed and no additional remarkable complaints except as stated - Constitutional Constitutional ROS IM: weight gain Exam - Vital Signs Vital signs: Afebrile, vital signs stable - Constitutional Constitutional: well developed, well nourished, no acute distress, average body habitus - HEENT HEENT: Normocephaly, Mucus Membranes Moist - Neck Neck exam: normal inspection, supple - Lungs Respiratory exam: CTAB - Cardiovascular Cardiovascular exam: RRR - Breasts Breast: bilateral: normal (Gravid) - Abdomen Abdomen: Present: bowel sounds normal, gravid, non tender - Extremities Extremities exam: pedal edema, warm - Vulva Vulva: bilateral: normal - Vagina Vagina: Present: normal moisture - Cervix Dilation: 4 Effacement: 80 Station: -2 - Anus/Rectum Anus/Rectum: Present: normal perianal skin Results All other labs normal. - VTE Reasons for not Prescribing Prophylaxis: Treatment not Indicated - Low risk for VTE
[2019-06-02] MEDS ORDERED: *HR* FentaNYL (PF) 100 MCG/2 ML VIAL EP ONE (16:37)
[2019-06-02] MEDS ORDERED: Bupivacaine-MPF 0.25% 10 ML VIAL EP ONE (16:37)
[2019-06-02] MEDS ORDERED: Epidural Premix (fent/bupiv) 110 ML EP SCH (16:45)
--- NOTE | 2019-06-02 17:39 | Anesthesia Evaluation PreOp ---
Date of Encounter: 06/02/19 Time of Encounter: 17:08 - Past History Planned Operation: LILY Cardiac History: Denies any Significant Hx Pulmonary History: Denies Any Significant HX LOADING SHOVEL OILER History: Other (migraines) Other Medical History: Other (pre-diabetic) Anesthesia History: No Prior Anesthetic Complications (LILY x 1--no complications; denies personal and family h/o GA complications), Past Anesthesia (Lx appy, R wrist surgery) : Yes Alcohol Use: none Drug use: none Medications and Allergies Zuo006/FA/Omega3/Dha/Fish Oil [ Gummies] 1 each PO DAILY 05/11/18 [History] Ferrous Sulfate 1 tab PO BID 05/11/19 [History] Allergy/AdvReac Type Severity Reaction Status Date / Time No Known Allergies Allergy Verified 05/19/19 19:35 - Meds/Allergy Pre-op Review Medications Reviewed: Yes Allergies Reviewed: Yes Anesthesia Results - Labs 06/02/19 11:35 Anesthesia Exam O2 Sat Height 1.57 m Height 1.57 m Weight 110.9 kg Weight 110.9 kg NPO (# of Hours): solids > 8hrs Pain Scale: 10 Pain Scale Used: Numeric (1 - 10) - HEENT Pupil (Motor): Pupils equal Mallampati: II Teeth: Normal Oral Opening: Greater than 3 - LOADING SHOVEL OILER LOC: Oriented LOADING SHOVEL OILER Motor: Normal RUE, Normal LUE, Normal RLE, Normal LLE, Normal Face LOADING SHOVEL OILER Sensory: Normal: RUE, LUE, RLE, LLE, Face - Cardiac Rhythm: Regular Murmur: None - Pulmonary Breath Sounds: bilateral Clear Respiratory Effort: Symmetrical Anesthesia Assess/Plan ASA Score: 3 Level of consciousness: Cooperative, Oriented, Tranquil Anesthetic Plan: Epidural Autologous Blood: No Monitoring Plan: Standard Monitors Recovery Plan: Other
--- NOTE | 2019-06-02 17:42 | Anesthesia Procedures ---
Date of Encounter: 06/02/19 Time of Encounter: 17:40 Procedures: Anesthesia - Epidural/Spinal Patient ID/Chart reviewed: Yes Patient examined: Yes OB Eval: Gestational age: 39 weeks 1 day OB Eval: : 2 OB Eval: Hx Para: 1 OB Eval: Contractions: Non-stressed pattern Consent Obtained: Yes Supplemental Oxygen: None/Room Air Site Prep: Aseptic Technique, Sterile prep and drape, 0.5% Chlorhexidine/Alcohol Patient position: upright Local Anesthetic: Lidocaine 1% Amount of Local Anesthetic used: 3 Touhy Needle Gauge: 18 Touhy Needle Depth (cm): 7 Catheter Depth at Skin (cm): 12 Test Dose (1.5% Lido + Epi): Volume given (mls): 6 Test Dose Result: Negative Loading Dose: 0.25% Marcaine (mls): 5 Loading Dose: Fentanyl (mcg): 100 Loading Dose Administered: Thru Catheter Infusion Med: 0.125% Bupivacaine w/ 2 mcg/ml Fentanyl Infusion Rate (mls/hr): 14 (w/ demand bolus of 5mL q30min PRN) Catheter Secured in Place: Tegaderm, Tape Interspace Used: L4-L5 Loss of Resistance (FRANK): Yes Blood: No CSF: No Paresthesia: No Procedure: successful on 1st attempt; patient tolerated procedure well; VSS Vitals + FHT's: Please see Margarita BEAN's electronic record for VS entryh
[2019-06-02] MEDS ORDERED: Azithromycin 500 MG in 0.9 % Sodium Chloride 250 ML IVPB ONE ×2 (20:03→20:13)
--- NOTE | 2019-06-02 20:15 | Event Note ---
Date of Encounter: 06/02/19 Time of Encounter: 19:55 Arrived in patient's room for category 2 tracing; Upon vaginal exam, a face presentation is noted. Called Dr Guajardo to bedside to confirm which she does as a Direct MP. Care transferred to Dr Guajardo for a primary section.
[2019-06-02] MEDS ORDERED: Acetaminophen IV 1,000 MG/100 ML INFUS..BTL IVPB ONE (21:08)
[2019-06-02] MEDS ORDERED: *HR* OxyCODONE Immed Rel 5 MG TABLET PO PRN (21:08)
[2019-06-02] MEDS ORDERED: *HR* HYDROmorphone (PF) 1 MG/ML SYRINGE IVP PRN (21:08)
[2019-06-02] MEDS ORDERED: *HR* Oxytocin 10 UNIT/ML VIAL IM ONE ×2 (21:09)
[2019-06-02] MEDS ORDERED: *HR* Phenylephrine 10 MG/ML VIAL ONE (21:09)
[2019-06-02] MEDS ORDERED: EPHEDrine 50 MG/ML VIAL ONE (21:09)
[2019-06-02] MEDS ORDERED: Ondansetron 4 MG/2 ML VIAL ONE (21:09)
[2019-06-02] MEDS ORDERED: Lidocaine/EPI 1:200k 2% PF 20 ML VIAL ONE (21:09)
[2019-06-02] MEDS ORDERED: Oxytocin 20 units/ LR 1000 mL 20 UNIT/1,000 ML BAG IVC ONE (21:33)
--- NOTE | 2019-06-02 21:36 | Anesthesia Evaluation Post Op ---
Date of Encounter: 06/02/19 Time of Encounter: 21:34 - Vital Signs Vital Signs: 126/51, HR 124, SpO2 100%, T98F, RR18 - Lungs Lungs: Clear Ascult./Percussion - Airway Airway: Non-obstructed - Cardiovascular Regular Rate - Mental Status Mental Status: Alert & Oriented, Answers Appropriately - Pain Pain Scale: 0 Pain Scale used: Numeric (1 - 10) - Nausea Vomiting Nausea Vomiting: Not Present - Hydration Hydration: NPO, Disla catheter - Discharge PostOp Status: Transfer Patient to floor
--- NOTE | 2019-06-02 21:37 | OB/GYN Procedure Note ---
Section - Date of procedure: 06/02/19 Preop diagnosis: category 2 FHT tracing, desires sterilization, other malpresentation (Face, mentum posterior) Post-op diagnosis: same Procedure: section, primary low transverse, bilateral tubal ligation Surgeon: Joyce Dumont Blood Loss: [phone] Was there an preschool teacher's assistant present: No Credit Reporter: Maximus Aguilar Anesthesia Type: Epidural (Labor epidural dosed for primary ) section complications: none Disposition: L&D Recovery Room Specimens: Placenta, Cord segment, Cord blood, Right tube segment, Left tube segment (Paratubal cyst X3) - Infant (s) Infant A Infant Delivery Date: 06/02/19 Delivery Time: 20:14 Presentation: vertex Route of delivery: other () Gender: Female Viability: Viable Pounds: 8 Ounces: 3 Gram Weight: 3.705 kg at 1 minute: 9 at 5 minutes: 9 Shoulder Dystocia: not encountered Specimens collected: cord blood Placenta: spontaneous, uterine exploration, other Cord: 3 umbilical vessels - Narrative Narrative: The patient was taken to the operating room on scheduled due to having a category 2 heart rate tracing and identified to be mentum posterior with dilation at 6 cm. The patient had spontaneous rupture membranes previously. Patient was taken to the operating room and prepped and draped in usual sterile fashion. EPCDs were placed. Timeout was completed. Anesthesia was tested to be adequate. A Pfannenstiel skin incision was made with a scalpel and sharply dissected down to the fascia. The fascia was incised in the midline and extended bilaterally with scissors. 2 straight [place] clamps were placed on the inferior fascial edge and the fascia was bluntly and sharply dissected away from the rectus muscles. This was repeated superiorly. The rectus muscles were then bluntly and sharply bissected in the midline. Peritoneum was bluntlyly entered and bluntly extended bilaterally. Bladder blade was placed to protect the bladder. Vesicouterine peritoneum was incised and reflected inferiorly. Bladder blade was replaced to protect the bladder. A low transverse incision was then made with a scalpel and sharply dissected down to the amnion. This was then bluntly extended bilaterally. The amnion was then bluntly entered. A moderate amount of clear fluid was seen. This was followed by the omentum posterior delivery of a vigorous __female_ infant weighing _8#_3oz, with Apgars of 9_ at 1 minute and _9 at 5 minutes. The infant was suctioned on the operating field, cord was clamped and cut after a delay, and the was handed to the nursery care team. Placenta was spontaneously extracted intact. Uterine cavity was digitally inspected and then wiped clean with a moist lap sponge. Clamps were placed on the uterine angles and the uterine incision was closed using 0 Vicryl suture in a running locking fashion. A second imbricating layer completed the uterine closure. There was extension down deep into the left lateral sulcus. This was incorporated into the lower uterine segment closure. Good hemostasis was achieved this time by placing [id number] sutures using 0 Vicryl in the midline. There were several areas of brisk bleeding from large sinuses along the uterine incision. Gloves were changed. Tubes and ovaries were inspected and found to be grossly normal. There were 3 paratubal cysts noted in the left fallopian tube at the distal end. There was one large mucinous-containing cyst that was drained and there were 2 more fibrous type cysts which were excised. The base was then cauterized with Bovie after excision with the Bovie. Good hemostasis was identified. The left fallopian tube was then grasped with Arabella clamp and doubly ligated with 0- plain suture. The loop of tube was excised and sent to pathology for confirmation. This is repeated for the right side. Tubal lumens were inspected and found to be hemostatic. The abdomen was irrigated copiously with sterile water. Peritoneal edges and rectus muscles were inspected and hemostasis achieved. Telma was placed along the lower uterine segment to support hemostasis. The fascia was then closed using an 0 PDS loop in a running, nonlocking fashion. Subcutaneous tissue was irrigated with sterile water and good hemostasis was achieved. The subcutaneous layer was closed with oh straw to fix in a running nonlocking fashion. Skin was closed with 4-0 Monocryl in a subcuticular fashion. Dressing was applied. All sponge and instrument counts were correct at the end of the procedure. The Disla was noted to be draining clear yellow urine at the end of the procedure. The patient was taken to the recovery room in stable condition. EBL _800__cc, complications none.
[2019-06-02] MEDS ORDERED: Oxytocin 20 units/ LR 1000 mL 20 UNIT/1,000 ML BAG IVC SCH (23:44)
[2019-06-02] MEDS ORDERED: Simethicone 80 MG TAB.CHEW PO PRN (23:44)
[2019-06-02] MEDS ORDERED: Measles/Mumps/Rubella Vacc 0.5 ML VIAL SQ ONE (23:44)
[2019-06-03] MEDS: Ibuprofen 600 MG TABLET PO SCH ×4 (00:33→18:21)
[2019-06-03] MEDS: Acetaminophen 325 MG TABLET PO SCH ×4 (00:33→18:21)
[2019-06-03 06:52] LABS: Basophils % 0.1 %; Hematocrit 27.5 % (35.3-44.9); Immature Granulocytes % 0.4 % (0-4); Lymphocytes # 1.3 K/mcL (0.6-4.6); Lymphocytes % 10.9 %; Mean Corpuscular HGB Conc 31.3 g/dL (31.6-35.5); Mean Corpuscular Hemoglobin 24.9 pg (28.0-33.3); Mean Corpuscular Volume 79.7 fL (83.0-100.0); Mean Platelet Volume 10.3 fL (9.4-12.4); Monocytes # 0.6 K/mcL (0.0-1.3); Monocytes % 4.6 %; Neutrophils # 10.1 K/mcL (1.6-8.9); Platelet Count 178 K/mcL (140-400); Red Blood Count 3.45 M/mcL (3.82-4.97); Red Cell Distribution Width 14.5 % (11.5-14.5)
[2019-06-03 06:56] LABS: Hemoglobin 8.6 g/dL (11.5-15.4)
[2019-06-03] MEDS ORDERED: *HR* Nalbuphine 10 MG/ML AMPUL IV PRN (09:20)
[2019-06-03] MEDS: *HR* OxyCODONE Immed Rel 5 MG TABLET PO PRN ×3 (10:05→19:58)
[2019-06-03] MEDS: cephALEXin 500 MG CAPSULE PO SCH ×3 (10:08→19:56)
[2019-06-03] MEDS: metroNIDAZOLE 500 MG TABLET PO SCH ×3 (10:08→19:56)
[2019-06-03] MEDS: Prenatal Vit/FA 1 EACH TABLET PO SCH (10:10)
--- NOTE | 2019-06-03 11:10 | OB/GYN Progress Note ---
Date of Encounter: 06/03/19 Time of Encounter: 11:08 - Assessment and Plan (1) delivery delivered Current Visit: Yes Status: Acute 1. Added an incentive spirometer for the patient to use 2. Continue to monitor the patient's mood 3. Continue to monitor the patient's pain 4. Continue to monitor the patient's incision site for signs of infection, or increased bleeding Patient has met all milestones status post , she is eating, drinking, passing gas, urinating, walking, her pain is under control (2) Acute blood loss anemia Current Visit: Yes Status: Acute Iron increased to BID with meals Subjective - Subjective Principal diagnosis: S/P Cesearan Section Patient reports: appetite normal, voiding normally, pain well controlled, ambulating normally, other (Patient reports a good mood. She endorses bowel gas, but no bowel movement. She has filled 1 pad lochia since ) [place]: doing well, bottle feeding Objective - Vital Signs Latest vital signs: Vital Signs Temp Pulse Resp BP Pulse Ox 06/03/19 07:30 98.2 F 114 16 107/70 06/03/19 02:10 97.8 F 110 16 110/74 99 06/03/19 01:10 98.2 F 103 14 122/75 98 06/03/19 00:10 98.0 F 82 14 129/71 99 06/02/19 23:40 97.9 F 86 14 116/75 99 Intake and Output 06/02/19 06/03/19 06/03/19 23:59 07:59 15:59 Intake Total 660 / 660 Output Total 150 / 150 501 / 651 150 / 651 Balance -150 / -150 -501 / 9 510 / 9 Intake: Oral 660 / 660 Output: Urine 100 / 250 150 / 250 Emesis Catheter 150 / 150 400 / 400 Other: Meal Breakfast Percent of Meal Consumed 100% Stool Characteristics Normal for Patient Weight 107.1 kg - Exam Lungs: bilateral: normal Chest: Normal S1, Normal S2 Extremities: Present: normal Abdomen: Present: normal appearance, soft Incision: Present: normal, intact, other (No increased drainage since last wound check.), dressed Uterus: Present: normal, firm Comments: Uterus fundus is one finger length below the umbilicus She has a good mood, she reports that she is happy. Denies any signs of depression, anxiety - Labs Labs: Laboratory Results - last 24 hr 06/02/19 06/02/19 06/03/19 11:00 11:35 06:34 WBC 9.4 12.0 H RBC 4.35 3.45 L Hgb 11.0 L 8.6 L D Hct 35.2 L 27.5 L MCV 80.9 L 79.7 L MCH 25.3 L 24.9 L MCHC 31.3 L 31.3 L RDW 14.5 14.5 Plt Count 216 178 MPV 11.2 10.3 Immature Gran % 0.6 0.4 Seg Neutrophils % 73.8 84.0 Lymphocytes % 18.4 10.9 Monocytes % 6.3 4.6 Eosinophils % 0.7 0.0 Basophils % 0.2 0.1 Neutrophils # 6.9 10.1 H Lymphocytes # 1.7 1.3 Monocytes # 0.6 0.6 Eosinophils # 0.1 0.0 Basophils # 0.0 0.0 Urine Opiates Screen Negative Ur Buprenorphine Scrn Negative Ur Barbiturates Screen Negative Ur Phencyclidine Scrn Negative Ur Amphetamines Screen Negative U Benzodiazepines Scrn Negative Urine Cocaine Screen Negative U Marijuana (THC) Screen Negative Ur Drug Screen Interp See Below
[2019-06-04] MEDS: Ibuprofen 600 MG TABLET PO SCH ×2 (00:21→06:43)
[2019-06-04] MEDS: Acetaminophen 325 MG TABLET PO SCH ×2 (00:21→06:43)
[2019-06-04] MEDS: *HR* OxyCODONE Immed Rel 5 MG TABLET PO PRN ×2 (04:03→08:22)
[2019-06-04 08:05] VITALS: BP 129/88
[2019-06-04] MEDS: cephALEXin 500 MG CAPSULE PO SCH (08:21)
[2019-06-04] MEDS: metroNIDAZOLE 500 MG TABLET PO SCH (08:21)
[2019-06-04] MEDS: Prenatal Vit/FA 1 EACH TABLET PO SCH (08:22)
--- NOTE | 2019-06-04 10:13 | Discharge Summary ---
Date of Encounter: 06/04/19 Time of Encounter: 10:12 - Discharge Diagnosis (1) S/P tubal ligation Priority: Secondary Status: Acute (2) Acute blood loss anemia Priority: Secondary Status: Acute Comments: Pt denies s/sx anemia. Home on iron. (3) delivery delivered Priority: Primary Status: Acute Comments: Pt meeting all milestones. She reports only mild cramping pain. Tolerating regular diet. Voiding freely. Passing flatus. Good mood. - Discharge Medications Prescriptions: New Ferrous Sulfate 325 mg PO BIDWM #60 tablet Ibuprofen [Motrin] 600 mg PO Q6HR #60 tablet OxyCODONE Immed Rel [Roxicodone 5 MG] 5 mg PO Q6HR PRN 7 Days #28 tablet PRN Reason: Severe Pain (7-10) Docusate [Colace] 100 mg PO BID #60 capsule Simethicone [Gas-X] 80 mg PO TID PRN tab.chew PRN Reason: Dyspepsia Continued Srx137/FA/Omega3/Dha/Fish Oil [ Gummies] 1 each PO DAILY Discontinued Ferrous Sulfate 1 tab PO BID Home Medications: Vcc570/FA/Omega3/Dha/Fish Oil [ Gummies] 1 each PO DAILY 05/11/18 [History] Docusate [Colace] 100 mg PO BID #60 capsule 06/04/19 [Rx] Ferrous Sulfate 325 mg PO BIDWM #60 tablet 06/04/19 [Rx] Ibuprofen [Motrin] 600 mg PO Q6HR #60 tablet 06/04/19 [Rx] OxyCODONE Immed Rel [Roxicodone 5 MG] 5 mg PO Q6HR PRN 7 Days #28 tablet 06/04/19 [Rx] Simethicone [Gas-X] 80 mg PO TID PRN tab.chew 06/04/19 [Rx] Allergies/Adverse Reactions: Allergy/AdvReac Type Severity Reaction Status Date / Time No Known Allergies Allergy Verified 05/19/19 19:35 Data Procedures and tests throughout hospitalization: Laboratory Tests 06/02/19 06/02/19 06/03/19 11:00 11:35 06:34 WBC 9.4 12.0 H RBC 4.35 3.45 L Hgb 11.0 L 8.6 L D Hct 35.2 L 27.5 L MCV 80.9 L 79.7 L MCH 25.3 L 24.9 L MCHC 31.3 L 31.3 L RDW 14.5 14.5 Plt Count 216 178 MPV 11.2 10.3 Immature Gran % 0.6 0.4 Seg Neutrophils % 73.8 84.0 Lymphocytes % 18.4 10.9 Monocytes % 6.3 4.6 Eosinophils % 0.7 0.0 Basophils % 0.2 0.1 Neutrophils # 6.9 10.1 H Lymphocytes # 1.7 1.3 Monocytes # 0.6 0.6 Eosinophils # 0.1 0.0 Basophils # 0.0 0.0 Urine Opiates Screen Negative Ur Buprenorphine Scrn Negative Ur Barbiturates Screen Negative Ur Phencyclidine Scrn Negative Ur Amphetamines Screen Negative U Benzodiazepines Scrn Negative Urine Cocaine Screen Negative U Marijuana (THC) Screen Negative Ur Drug Screen Interp See Below Date of admission: 06/02/19 09:32 Primary care physician: CATHRYN Abraham Discharging clinician: Cristina Alexandra Anticipated date of discharge: 06/04/19 - Patient Status Disposition: Home, Self-Care Condition: Good Functional capacity at discharge: independent ambulation Overall status at discharge: patient is progressing back to baseline - Discharge Instructions Follow Up With: Faisal Fisher PAC [Primary Care Provider] - Joyce Guajardo MD [Partnered Physician] - - Diet and Activity Activity: increase activity as tolerated Diet: regular diet Hospital Course Delivery: section Episiotomy: none Laceration: none Other procedures: tubal ligation complications: none Discharge diagnosis: IUP at term delivered [place] baby: female Hospital course: - Date of procedure: 06/02/19 Preop diagnosis: category 2 FHT tracing, desires sterilization, other malpresentation (Face, mentum posterior) Post-op diagnosis: same Procedure: section, primary low transverse, bilateral tubal ligation Surgeon: Joyce Guajardo Quantitated Blood Loss: 800 Was there an email marketing assistant present: No Smoking Pipe Coater: Maximus Aguilar Anesthesia Type: Epidural (Labor epidural dosed for primary ) section complications: none Disposition: L&D Recovery Room Specimens: Placenta, Cord segment, Cord blood, Right tube segment, Left tube segment (Paratubal cyst X3) - (s) Infant A Infant Delivery Date: 06/02/19 Delivery Time: 20:14 Presentation: vertex Route of delivery: other () Gender: Female Viability: Viable Pounds: 8 Ounces: 3 Gram Weight: 3.705 kg at 1 minute: 9 at 5 minutes: 9 Shoulder Dystocia: not encountered Specimens collected: cord blood Placenta: spontaneous, uterine exploration, other Cord: 3 umbilical vessels Time Attestation: Total time spent providing and/or coordinating discharge services: Time Spent: Less than 30 minutes - VTE Reasons for not Prescribing Prophylaxis: Treatment not Indicated - Low risk for VTE Documentation of Mechanical Device: Intermittent pneumatic compression device Exam - Constitutional Vitals: Temp Pulse Resp BP Pulse Ox 98.6 F 95 14 129/88 98 06/04/19 08:04 06/04/19 08:04 06/04/19 08:04 06/04/19 08:04 06/04/19 08:04 General appearance IM: A&O X 3 - Respiratory Respiratory exam: Present: CTAB - Cardiovascular Cardiovascular exam IM: Present: RRR - GI/Abdominal GI/Abdominal exam IM: soft, no peritoneal signs Incision: intact (dermabond in place, no s/sx infection) - Uterine Tone: Firm Uterus Position: 1 Finger Below Umbilicus - Extremities Exam Extremities exam IM: Present: pedal edema (mild bilaterally) - Neurological Exam Neurological exam: normal gait, oriented X3
== END 2019-06-04 11:25 | disposition home or self-care (01) | DRG 540 ==
LOC: 1NENULAB 09:32 → 1NENUOBS 23:41
PROVIDERS: ADMIT Advanced Practice Midwife; ATTEND Advanced Practice Midwife